=== PATIENT | male | born 1935 | race Caucasian/White ===

== ENCOUNTER → 2016-11-10 | Outpatient (CLI) | payer OTHER ==
[~2016-11-10] MED LIST: ASPEC81 PO; HYT/2 PO; LISI-789 PO; METO25TA3 PO; MISCCAP80 PO; MULT-506 PO; SIMV40TA4 PO
[2016-11-10 11:20] LABS: ESTIMATED AVERAGE GLUCOSE 114 mg/dl; HA1C FLAG Normal (Normal)
[2016-11-10 11:25] LABS: ALT/SGPT 33 U/L (12-78); AST/SGOT 21 U/L (15-37); BLOOD UREA NITROGEN 15 mg/dl (7-18); BUN/CREATININE RATIO 12.7 (10-20); CALCIUM 8.9 mg/dl (8.5-10.1); CARBON DIOXIDE 27 mmol/L (21-32); CHLORIDE 106 mmol/L (98-107); GLUCOSE 125 mg/dl (70-99); HDL CHOLESTEROL 53 mg/dl; POTASSIUM 4.4 mmol/L (3.5-5.1); SODIUM 141 mmol/L (136-145)
[2016-11-10 11:27] LABS: ALKALINE PHOSPHATASE 46 U/L (45-117); CHOLESTEROL 114 mg/dl (0-200); CHOLESTEROL/HDL RATIO 2.2; LDL CHOLESTEROL CALCULATED 35 mg/dl; TRIGLYCERIDES 129 mg/dl (0-150); VERY LOW DENSITY LIPOPROT CALC 26 mg/dl
[2016-11-10 11:49] LABS: HEMATOCRIT 43.8 % (42-52); MEAN CELL VOLUME 91.1 fL (80-100); MEAN CORPUSCULAR HEMOGLOBIN 32.2 pg (25-34); MEAN CORPUSCULAR HGB CONC 35.4 g/dl (32-36); MEAN PLATELET VOLUME 12.3 fL (7.4-10.4); PLATELET COUNT 87 K/uL (130-400); RED BLOOD COUNT 4.81 M/uL (4.7-6.1); WHITE BLOOD COUNT 4.84 K/uL (4.8-10.8)
[2016-11-10 11:53] LABS: BASO % 0.2 %; BASO ABS # 0.01 K/uL (0-0.2); COMPLETE YES; EOS % 2.1 %; IG% 0.4 %; LYMPH ABS # 0.63 K/uL (1.2-3.4); MONO % 7.2 %; NEUT % 77.1 %; PLT ESTIMATE DECREASED
--- NOTE | 2016-11-14 10:13 | CODING QUERY MEDICAL NECESSITY ---
SUPPORTING DIAGNOSIS NEEDED Dr. Wilson, A supporting diagnosis is required for the test/procedure performed on this patient in order for us to be reimbursed by the patient's insurance. Please provide a supporting diagnosis for the following test/procedure listed below next to the test name along with your signature. *If there is no additional diagnosis for this patient that would support the following test/procedure please document that below next to the test/procedure. Test(s)/Procedure(s) that require a supporting diagnosis: * ([id number]) VITAMIN D ASSAY DIAGNOSIS: DATE OF SERVICE: 11/10/16 Provider Signature: Date: Thank you [facility] Information Management Once completed, please kindly fax back to [phone] For questions please call [phone]
== END | disposition home or self-care (01) ==
LOC: C.LABBC 08:35
PROVIDERS: ATTEND Internal Medicine Geriatric Medicine
DX: I25.10 Atherosclerotic heart disease of native coronary artery without angina pectoris (principal); I10 Essential (primary) hypertension; R73.9 Hyperglycemia, unspecified; C85.90 Non-Hodgkin lymphoma, unspecified, unspecified site; L40.9 Psoriasis, unspecified

== ENCOUNTER → 2017-02-06 | Outpatient (CLI) | payer OTHER ==
[2017-02-06 14:19] VITALS: BP 150/82; PULSE 64; TEMP 36.7; O2SAT 95
--- NOTE | 2017-02-06 16:30 | Radiation Oncology Follow-Up ---
Radiation Oncology Follow-Up Date of Visit Feb 06, 2017. (Sandra Muñiz PA-C) Reason For Visit Annual follow-up (Sandra Muñiz PA-C) Radiation Completion Date 07/06/15 (Sandra Muñiz PA-C) Diagnosis (1) Liposarcoma Status: Resolved Onset Date: 04/23/2015 Location: left axilla Stage: lll Permanent Comment: Left axilla, dedifferentiated liposarcoma, grade 3, [id number] , stage III (close lateral margin - 5 mm) Left axillary mass 01/22/2015 CT 02/02/2015 FNA showed rare malignant cells 03/23/2015 wide local excision with lymph node dissection Status post completion of radiation therapy 07/06/2015 received 6000 cGy Last Edited By: Sandra Muñiz on Jul 13, 2015 11:33 (Sandra Muñiz PA-C) History of Present Illness Mr. Strickland is a 79 year old male who recently presented with a palpable left axillary mass. It was initially detected by Dr. Wilson after the patient was complaining of night sweats. He did have a CT Thorax/Abdo/Pelvis which was completed on 01/22/2015 and revealed a left axillary michell mass measuring 5.7 cm in greatest dimension. There was no other evidence of disease. The patient subsequently had a FNA biopsy completed on 02/02/2015 which which only revealed rare malignant cells. The patient was then referred to Dr. Abundio Farooq who did perform an excisional biopsy of the mass which revealed poorly differentiated malignant neoplasm. This pathology specimen was reevaluated at [facility] and they did diagnose it as a dedifferentiated liposarcoma. Subsequently the patient was referred to Dr. Melanie Richardson at [facility] and she recommended a wide local excision and axillary lymph node dissection. The patient underwent wide local excision and actually lymph node dissection on 03/23/2015 which revealed a 9.5 cm dedifferentiated liposarcoma, grade 3. The margins were negative however the closest margin was 5 mm and was at the lateral aspect. 2 out of the 8 axillary lymph nodes were positive for metastatic liposarcoma. The patient was staged as pT2bN1, AJCC stage III. The patient's case was discussed and the recommendation was made for adjuvant radiation therapy and consideration of chemotherapy. Dr. Dawson has seen the patient in consultation and recommended consideration of adjuvant radiation therapy. Restaging scans were completed on 04/22/2015 and showed no evidence of progression of disease or metastatic disease. The patient continues to follow with Dr. Farooq and is being followed as he does continue to have drainage from a J-drain. We are now seeing the patient in consultation. He completed radiation therapy 07/06/2015. He received 6000 cGy (Sandra Muñiz PA-C) Interim History He's been doing well over this past year. He has noted no changes of the axilla. There been no masses. He has a history of lymphedema. He states that the swelling of the arm is doing very well. He wears his sleeve on a nearly daily basis. He is not been seen at the lymphedema clinic over this past year. This has not been required. He is seen on a regular basis at [facility] by . He has a CT of the chest at each visit. There is been no recurrence. There has been no findings of metastatic disease in the chest. (Sandra Muñiz PA-C) Allergies Coded Allergies: No Known Allergies (Unverified , 01/10/16) Home Medications Scheduled Aspirin Enteric Coated (Ecotrin Or Generic *), 81 MG PO QAM Lisinopril (Zestril), 2.5 MG PO QAM Metoprolol Succ (Toprol Xl) (Toprol-Xl), 25 MG PO QAM Multivitamin (Multivitamin), 1 TAB PO QAM Probiotic Product (Probiotic), 1 CAP PO QAM Simvastatin (Zocor), 40 MG PO QPM Terazosin Hcl (Hytrin), 2 TAB PO BID Review of Systems Gastrointestinal: Symptoms: Constipation GI Comments: Chronic constipation - manageable with miralax; Oral: Symptoms: No Problems Respiratory: Symptoms: WNL Urinary: Symptoms: WNL Comments: Takes medication for enlarged prostate - no changes in habits Skin: Symptoms: No Problems Breast: Right Upper Arm Measurement: 32.3 Right Mid Arm Measurement: 29.0 Right Wrist Measurement: 18.5 Left Upper Arm Measurement: 32.8 Left Mid Arm Measurement: 31.5 Left Wrist Measurement: 18.8 Arm Dominence: Right (Sandra Muñiz PA-C) Physical Exam Vital Signs Date Time Temp Pulse Resp B/P (MAP) Pulse Ox O2 Delivery O2 Flow Rate FiO2 02/06/17 14:19 36.7 64 20 150/82 95 General Appearance: no apparent distress Eyes: normal inspection, EOMI ENT: normal ENT inspection Neck: no adenopathy, thyroid normal Respiratory/Chest: lungs clear, no respiratory distress, no accessory muscle use Cardiovascular: regular rate, rhythm, no gallop, no murmur Abdomen: non tender, soft Extremities: + pertinent finding (compression sleeve and placed on the left arm. There are postoperative and post radiation changes seen in the axilla. There is mild telangiectasia. There is residual hyperpigmentation. There are no palpable masses.) Neurologic/Psychiatric: no motor/sensory deficits, alert, normal mood/affect Skin: + pertinent finding (generalized eczema) (Sandra Muñiz PA-C) Laboratory Studies Test 11/10/16 08:39 White Blood Count 4.84 K/uL (4.8-10.8) Red Blood Count 4.81 M/uL (4.7-6.1) Hemoglobin 15.5 g/dL (14.0-18.0) Hematocrit 43.8 % (42-52) Mean Corpuscular Volume 91.1 fL (80-100) Mean Corpuscular Hemoglobin 32.2 pg (25-34) Mean Corpuscular Hemoglobin Concent 35.4 g/dl (32-36) Platelet Count 87 K/uL (130-400) Mean Platelet Volume 12.3 fL (7.4-10.4) Neutrophils (%) (Auto) 77.1 % Lymphocytes (%) (Auto) 13.0 % Monocytes (%) (Auto) 7.2 % Eosinophils (%) (Auto) 2.1 % Basophils (%) (Auto) 0.2 % Neutrophils # (Auto) 3.73 K/uL (1.4-6.5) Lymphocytes # (Auto) 0.63 K/uL (1.2-3.4) Monocytes # (Auto) 0.35 K/uL (0.11-0.59) Eosinophils # (Auto) 0.10 K/uL (0-0.5) Basophils # (Auto) 0.01 K/uL (0-0.2) RDW Standard Deviation 48.6 fL (36.4-46.3) RDW Coefficient of Variation 14.5 % (11.5-14.5) Immature Granulocyte % (Auto) 0.4 % Immature Granulocyte # (Auto) 0.02 K/uL (0.00-0.02) Platelet Estimate DECREASED Sodium Level 141 mmol/L (136-145) Potassium Level 4.4 mmol/L (3.5-5.1) Chloride Level 106 mmol/L (98-107) Carbon Dioxide Level 27 mmol/L (21-32) Anion Gap 8.0 mmol/L (3-11) Blood Urea Nitrogen 15 mg/dl (7-18) Creatinine 1.20 mg/dl (0.60-1.40) Estimated GFR () 64.9 Estimated GFR (Non- 56.0 BUN/Creatinine Ratio 12.7 (10-20) Random Glucose 125 mg/dl (70-99) Estimated Average Glucose 114 mg/dl Hemoglobin A1c 5.6 % (4.5-5.6) Calcium Level 8.9 mg/dl (8.5-10.1) Total Bilirubin 0.9 mg/dl (0.2-1) Aspartate Amino Transferase (AST) 21 U/L (15-37) Alanine Aminotransferase (ALT) 33 U/L (12-78) Alkaline Phosphatase 46 U/L (45-117) Total Protein 6.9 gm/dl (6.4-8.2) Albumin 3.5 gm/dl (3.4-5.0) Globulin 3.4 gm/dl (2.5-4.0) Albumin/Globulin Ratio 1.0 (0.9-2) Triglycerides Level 129 mg/dl (0-150) Cholesterol Level 114 mg/dl (0-200) HDL Cholesterol 53 mg/dl LDL Cholesterol, Calculated 35 mg/dl VLDL Cholesterol, Calculated 26 mg/dl Cholesterol/HDL Ratio 2.2 25-Hydroxy Vitamin D Total 32.7 ng/ml (30-100) (Sandra Muñiz PA-C) Additional Studies He had a CT of the chest 08/22/2016. This showed no evidence of metastatic disease. Evolving postoperative and post radiation changes in the left axilla, improved. 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 (Sandra Muñiz PA-C) Assessment & Plan Plan: Patient is also seen and examined by Dr. Torres. Continue follow-up with his primary care physician and at [facility]. He'll be seeing her having a recheck CT of the chest in February. We asked him to return to our office in 1 year. He may call if he has new questions or concerns in the interim. (Sandra Muñiz PA-C) I agree with note created by Sandra Muñiz PA-C. I reviewed the patient's chart and information with her. I have examined and evaluated the patient. I reviewed relevant clinical information and answered the patient's and/or family' s questions. (Veeral. Torres MD) Total Time In Follow-Up I spent 20 minutes the need to the patient performing examination. I spent 15 minutes reviewing information and completing this note. (Sandra Muñiz PA-C) I spent 15 minutes examining and counseling the patient. (Veeral. Torres MD) Copy To Berto Wilson M.D.; Melanie Richardson M.D.
== END | disposition home or self-care (01) ==
LOC: C.ONC 14:10
PROVIDERS: ATTEND Physician Assistant Medical
DX: Z08 Encounter for follow-up examination after completed treatment for malignant neoplasm (principal); Z92.3 Personal history of irradiation; Z85.89 Personal history of malignant neoplasm of other organs and systems

== ENCOUNTER → 2017-12-20 | Outpatient (CLI) | payer OTHER ==
--- NOTE | 2017-12-20 11:36 | DIAGNOSTIC IMAGING REPORT ---
LUMBAR SPINE 5 VIEWS CLINICAL HISTORY: Chronic low back pain. FINDINGS: 5 views of the lumbar spine are correlated with abdominal CT dated 04/22/2015. The skeletal structures are osteopenic. There is no radiographic evidence of fracture or malalignment. There is straightening of the lumbar lordosis. Vertebral body height and alignment are maintained. The transverse and spinous processes appear intact. Anterior osteophytes are seen throughout. There is no evidence of spondylolysis. Facet arthropathy is seen in the lower lumbar region. There is moderate disc space narrowing at L5-S1. Mild disc space narrowing is seen at the remaining lumbar levels. The visualized bony pelvis appears intact. Mild sclerotic change is noted in the sacroiliac joints. No bowel obstruction is identified. There is mild to moderate colonic fecal retention. Advanced atherosclerotic calcification is noted in the abdominal aorta. IMPRESSION: 1. No acute bony abnormality is seen involving the lumbar spine. 2. Osteopenia and spondylotic change as detailed above. Dictated: 12/20/2017 10:29 AM Transcribed: 12/20/2017 11:36 AM SURENDRA_[email or web address] Electronically signed by: Saeed Graff M.D. 12/20/2017 11:50 AM Dictated Date/Time: 12/20/2017 10:29 AM
== END | disposition home or self-care (01) ==
LOC: C.RADBC 10:12
PROVIDERS: ATTEND Internal Medicine Geriatric Medicine
DX: M54.5 Low back pain (principal)

== ENCOUNTER 2022-05-02 10:37 | Observation (INO) ==
--- NOTE | 2022-05-02 11:45 | Emergency Department Note ---
Impression & Plan Dehydration, Lymphedema of arm, Elevated LFTs, Weakness, Drop in hemoglobin ED Provider Note NAME: MONTY GARCIA AGE: 86 SEX: M : 1935 ARRIVES VIA: Walk-In INFORMANT: Patient, ED PROVIDER(S): Trey Lee MD Chief Complaint: Weakness, fatigue, dehydration, arm swelling HPI: Patient presents with the above symptoms. The patient did have an upper respiratory illness several weeks ago and since then he has not quite recovered in terms of strength. The patient states that his appetite has been poor may not be drinking as much and has been trying to continue with Ensure. Patient was seen by Marlys Leon in the outpatient setting at [facility] was referred here for further evaluation and treatment. There was also concern that the patient may be dehydrated. Patient has complained of some mild shortness of breath but denies any orthopnea. He has more fatigable. Patient denies any chest pains. He has noted some increase in left upper extremity swelling. The patient does live by himself. Family at bedside does live nearby. Patient has not had any nausea vomiting or diarrhea. Patient denies any dark stools or bloody stools. Patient denies any chest pains. Patient denies any abdominal pains. ROS: See HPI for pertinent positives and negatives. A total of 10 systems were reviewed and otherwise negative. Past medical history: See below Surgical history: See below Social history: See below Physical Exam: GENERAL: NAD, wearing a mask, non-toxic. Hard of hearing. EYE EXAM: Normal conjunctiva. PERRL, no anisocoria and EOM's grossly intact w/o pain. NECK: Supple, no nuchal rigidity, no adenopathy, non-tender. No signs of meningismus. FROM of the neck with good chin to chest and neck extension. No stridor. LUNGS: Clear to auscultation. Normal chest wall mechanics. HEART: NSR, no MRG. ABDOMEN: Abdomen soft, non-tender, normo-active bowel sounds, no masses, no rebound or guarding. BACK: No CVA TTP. SKIN: No rashes and no bruising. UPPER EXTREMITIES: Left greater than right extremity swelling, faint blanching redness but without crepitus warmth or TTP. Neurovascular intact distally with good radial pulse. LOWER EXTREMITIES: Grossly normal, 1+ symmetric pretibial edema without any surrounding erythema or crepitus and no pain. Neurovascular intact distally. NEURO EXAM: A&O x3, cranial nerves II-XII grossly intact, normal speech, moves all 4 extremities. Differential diagnoses: Infection, dehydration, metabolic abnormality, hypo/hyperglycemia, electrolyte disturbance, anemia, hypoxia, cardiac sources, intracerebral event, toxicologic, neurologic, as well as other pathologies. Course: Patient was seen and evaluated the bedside. Full history physical exam was performed. EKG interpreted by me Sinus with first-degree AV block, PVCs noted. Rate is 68, wide QRS, left oral branch block pattern. PVCs and left bundle are new from comparison February 09, 2015. No obvious sgarbossa criteria Imaging Studies: See Below Cardiac monitoring: An order was placed for continuous cardiac monitoring. The monitor shows a rate of 72 with regular rhythm. MDM: Patient presents as an outpatient referral due to concern for weakness shortness of breath and left upper extremity swelling. Blood work was obtained along with an EKG chest x-ray and left upper extremity ultrasound. The patient's chest film shows cardiomegaly but without pulmonary edema. The patient does have some atelectatic changes. The patient's blood work shows a normal white count but with a hemoglobin of 11. Patient's most recent hemoglobin several months ago was 15. Patient had denied any dark stool or bright red blood per rectum. Patient's kidney function is unremarkable. Mild hypocalcemia was noted. The patient did receive calcium replacement and the patient was mildly hyponatremic at 131 but did receive IV fluids. The patient's bilirubin AST ALT and alk phos are elevated. Patient's bilirubin is chronically elevated. AST is borderline elevated at 47 and the patient's ALT is at 57. Alk phos of 143. Patient did have a gallbladder liver ultrasound that was added to his left upper extremity ultrasound. COVID-negative. Patient's left upper extremity ultrasound is negative. I did perform a rectal exam which was heme-negative. Patient's right upper quadrant ultrasound does show possibly a calculus cholecystitis. I did speak with the on-call general surgery team Mirta Cortez PA-C. She recommended admission and HIDA scan. I did speak with the on-call hospitalist Dr. Vo and the patient was admitted to the medicine service. 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 History of coronary artery bypass graft x 1 Family History Father Cancer Aunt Cancer Brother Coronary heart disease Myocardial infarction Denies family history of Ovarian cancer Prostate cancer Breast cancer Lung cancer Colorectal cancer Social History Smoking Status: Former smoker Age Started Using Tobacco: 15; Age Quit Using Tobacco: 45; Second Hand Exposure: No; Hx Alcohol Use: No Hx Substance Use: No Preferred Language: Persian Hearing Ability: Use of Hearing Aid marital status: Current Living Situation: Alone current occupational status: retired Feels Safe at Home: Yes caffeine: Yes Dental Care, Regularly: Yes Physical Activity Frequency: 3-4 Times per Week Seatbelt Use: always Sunscreen Use: No Assistive Devices: Denture - Upper, Glasses, Hearing Aid - Bilateral and Hearing Aid - Left Allergies Allergies Allergy/AdvReac Type Severity Reaction Status Date / Time No Known Allergies Allergy Verified 05/02/22 17:47 Home Meds Home Medications Medication Instructions Recorded Confirmed amoxicillin 500 mg capsule 2,000 mg PO ONCE PRN DENTAL 04/22/19 05/02/22 APPOINTMENT #4 caps multivitamin (Daily Multi-Vitamin 1 tab PO DAILY 04/22/19 05/02/22 tablet) terazosin 2 mg capsule 4 mg PO HS #360 caps 04/22/19 05/02/22 lactobacillus combination no.8 See Rx Instructions PO DAILY 05/15/19 05/02/22 [Adult Probiotic] atorvastatin 20 mg tablet 40 mg PO DAILY 08/01/21 05/02/22 Previous Rx's Medication Instructions Recorded lisinopril 2.5 mg tablet 2.5 mg PO DAILY #90 tabs 04/12/22 metoprolol succinate 25 mg 25 mg PO DAILY #90 tabs 04/12/22 tablet,extended release 24 hr Results & Data (ED) Vital Signs Vital Signs - 24 hr 05/02/22 11:06 05/02/22 14:00 05/02/22 15:44 Temperature 36.3 C L Temperature Source Temporal Artery Scan Pulse Rate 79 Pulse Rate [Right Finger] 68 73 Pulse Rhythm Regular Pulse Rhythm [Right Finger] Regular Regular Pulse Strength Normal Pulse Strength [Right Finger] Respiratory Rate 18 18 20 Respiratory Effort / Characteristics Non-Labored Spontaneous Respiratory Depth Normal Normal Normal Respiratory Pattern Regular Blood Pressure 103/66 Blood Pressure [Right Arm] 131/84 115/61 Blood Pressure Mean 78 Blood Pressure Mean [Right Arm] 99 79 Blood Pressure Position Sitting Blood Pressure Position [Right Arm] Pulse Oximetry 96 99 97 Oxygen Delivery Method Room Air Room Air Room Air Sepsis Recent Fever Within 48 Hours No Sepsis New/Unexplained Change in Mental Status No Sepsis Action Taken by Nursing No Action Required 05/02/22 17:00 Temperature Temperature Source Pulse Rate Pulse Rate [Right Finger] 71 Pulse Rhythm Pulse Rhythm [Right Finger] Regular Pulse Strength Pulse Strength [Right Finger] Normal Respiratory Rate 20 Respiratory Effort / Characteristics Non-Labored Spontaneous Respiratory Depth Normal Respiratory Pattern Regular Blood Pressure Blood Pressure [Right Arm] 122/69 Blood Pressure Mean Blood Pressure Mean [Right Arm] 86 Blood Pressure Position Blood Pressure Position [Right Arm] Sitting Pulse Oximetry 94 Oxygen Delivery Method Room Air Sepsis Recent Fever Within 48 Hours Sepsis New/Unexplained Change in Mental Status Sepsis Action Taken by [facility] Medications Current Medication List: was personally reviewed by me Laboratory Data Attestation: I reviewed the patient's lab results. Result diagrams: 05/02/22 12:45 05/02/22 12:45 Lab Results 05/02/22 05/02/22 05/02/22 Range/Units 12:45 12:45 12:45 WBC 7.54 (4.8-10.8) K/ul RBC 3.49 L (4.63-6.08) M/uL Hgb 11.0 L (14.0-18.0) g/dl Hct 32.7 L (40.1-51.0) % MCV 93.7 (80.0-100.0) fL MCH 31.5 (25.0-34.0) pg MCHC 33.6 (32.0-36.0) g/dL RDW Std Deviation 51.9 H (36.4-46.3) fL RDW Coeff of Laith 15.3 H (11.5-14.5) % Plt Count 149 (130-400) K/uL MPV 10.8 (9.4-12.4) fL Immature Gran % (Auto) 0.8 % Neut % (Auto) 89.9 % Lymph % (Auto) 4.9 % Tompkins % (Auto) 3.6 % Eos % (Auto) 0.4 % Baso % (Auto) 0.4 % Neut # (Auto) 6.78 H (1.4-6.5) K/uL Lymph # (Auto) 0.37 L (1.2-3.4) K/uL Tompkins # (Auto) 0.27 (0.24-0.82) K/uL Eos # (Auto) 0.03 (0-0.50) K/uL Baso # (Auto) 0.03 (0-0.2) K/uL Immature Gran # (Auto) 0.06 H (0.00-0.02) K/uL Polychromasia 1+ Echinocytes 2+ Acanthocytes (Spur) 2+ PT 12.5 H (9.0-12.0) Seconds INR 1.2 H (0.9-1.1) Sodium 131 L (136-145) mmol/L Potassium 4.6 (3.5-5.1) mmol/L Chloride 100 (98-107) mmol/L Carbon Dioxide 26 (21-32) mmol/L Anion Gap 5 (3-11) BUN 18 (6-23) mg/dl Creatinine 0.84 (0.6-1.4) mg/dl Est Cr Clr Drug Dosing 75.2 ml/min Est GFR ( Amer) 91.2 ml/min Est GFR (Non-Af Amer) 78.7 ml/min BUN/Creatinine Ratio 21.4 H (10-20) Glucose 109 H (70-99(Fasting)) mg/dl Calcium 8.2 L (8.5-10.1) mg/dl Magnesium 1.9 (1.7-2.4) mg/dl Total Bilirubin 1.3 H (0.2-1.0) mg/dl AST 47 H (13-39) U/L ALT 57 H (7-52) U/L Alkaline Phosphatase 143 H (34-104) U/L Troponin I High Sens 5.9 (0-20) pg/ml Total Protein 6.1 (6.0-8.3) gm/dl Albumin 2.7 L (3.4-5.0) gm/dl Globulin 3.4 (2.5-4.0) gm/dl Albumin/Globulin Ratio 0.8 L (0.9-2) TSH (0.300-4.500) uIu/ml SARS-CoV-2, RNA, NAAT (NEGATIVE) 05/02/22 05/02/22 Range/Units 12:45 14:26 WBC (4.8-10.8) K/ul RBC (4.63-6.08) M/uL Hgb (14.0-18.0) g/dl Hct (40.1-51.0) % MCV (80.0-100.0) fL MCH (25.0-34.0) pg MCHC (32.0-36.0) g/dL RDW Std Deviation (36.4-46.3) fL RDW Coeff of Laith (11.5-14.5) % Plt Count (130-400) K/uL MPV (9.4-12.4) fL Immature Gran % (Auto) % Neut % (Auto) % Lymph % (Auto) % Tompkins % (Auto) % Eos % (Auto) % Baso % (Auto) % Neut # (Auto) (1.4-6.5) K/uL Lymph # (Auto) (1.2-3.4) K/uL Tompkins # (Auto) (0.24-0.82) K/uL Eos # (Auto) (0-0.50) K/uL Baso # (Auto) (0-0.2) K/uL Immature Gran # (Auto) (0.00-0.02) K/uL Polychromasia Echinocytes Acanthocytes (Spur) PT (9.0-12.0) Seconds INR (0.9-1.1) Sodium (136-145) mmol/L Potassium (3.5-5.1) mmol/L Chloride (98-107) mmol/L Carbon Dioxide (21-32) mmol/L Anion Gap (3-11) BUN (6-23) mg/dl Creatinine (0.6-1.4) mg/dl Est Cr Clr Drug Dosing ml/min Est GFR ( Amer) ml/min Est GFR (Non-Af Amer) ml/min BUN/Creatinine Ratio (10-20) Glucose (70-99(Fasting)) mg/dl Calcium (8.5-10.1) mg/dl Magnesium (1.7-2.4) mg/dl Total Bilirubin (0.2-1.0) mg/dl AST (13-39) U/L ALT (7-52) U/L Alkaline Phosphatase (34-104) U/L Troponin I High Sens (0-20) pg/ml Total Protein (6.0-8.3) gm/dl Albumin (3.4-5.0) gm/dl Globulin (2.5-4.0) gm/dl Albumin/Globulin Ratio (0.9-2) TSH 4.226 (0.300-4.500) uIu/ml SARS-CoV-2, RNA, NAAT NEGATIVE (NEGATIVE) Administered Medications Discontinued Medications Sodium Chloride (Nss 1000ml) 1,000 mls @ 999 mls/hr IV .Q1H1M ASHLY Stop: 05/02/22 13:30 Last Admin: 05/02/22 14:12 Dose: 999 mls/hr Documented By: AMANDA Calcium Gluconate () 1,000 mg in 60 mls @ 240 mls/hr IV NOW STA Stop: 05/02/22 15:11 Last Infusion: 05/02/22 16:29 Dose: 240 mls/hr Documented By: Admin: 05/02/22 16:05 Dose: 240 mls/hr Documented By: AMANDA Imaging Data Radiologist's Impression: Extremity Venous Study 05/02/22 12:16 ULTRASOUND LEFT UPPER EXTREMITY VENOUS CLINICAL HISTORY: Lymphedema. COMPARISON STUDY: No priors. TECHNIQUE: Real-time, grayscale, and color Doppler sonography of the deep veins of the left upper extremity is performed. Compression and augmentation were utilized. FINDINGS: There is no sonographic evidence of deep venous thrombosis identified in the left upper extremity. The left internal jugular, axillary, and brachial veins are patent and normally compressible. Normal venous waveforms and augmentation are seen within the left subclavian vein. The cephalic and basilic veins are clear. The visualized radial and ulnar veins are patent. IMPRESSION: There is no sonographic evidence of deep venous thrombosis identi fied in the left upper extremity. ACT 112: Negative or not required by law. Electronically signed by: Saeed Graff M.D. 05/02/2022 3:40 PM Chest X-Ray 05/02/22 12:17 XR chest 1V portable HISTORY: 86 years-old Male weakness acute weakness COMPARISON: Chest CT 02/26/2020 TECHNIQUE: Portable AP view of the chest FINDINGS: Cardiac silhouette is enlarged. Prior median sternotomy. Atherosclerosis of the aorta. No pneumothorax or overt pulmonary edema. Mild subsegmental bibasilar densities. Degenerative changes of the shoulders and spine. Surgical clips of the left axilla. IMPRESSION: 1. Cardiomegaly without pulmonary edema. 2. Mild bibasilar opacities suggest atelectasis. ACT 112: Negative or not required by law. The above report was generated using voice recognition software. It may contain grammatical, syntax or spelling errors. Electronically signed by: Garrison Russo M.D. 05/02/2022 1:15 PM Gallbladder Ultrasound 05/02/22 14:10 ULTRASOUND RIGHT UPPER QUADRANT ABDOMEN CLINICAL HISTORY: Elevated hepatic transaminases. COMPARISON STUDY: Abdominal CT dated 04/22/2015. Abdominal ultrasound dated 10/11/2020. TECHNIQUE: Real-time, grayscale, and color flow sonography of the right upper quadrant of the abdomen was performed. Images are reviewed in the transverse and longitudinal planes. FINDINGS: Liver: The liver is normal in size. Hepatic echotexture there is increased getting steatosis. There is no intrahepatic biliary ductal dilatation. The main portal vein is patent. Gallbladder: The gallbladder is distended and the gallbladder wall is mildly thickened measuring 3 to 4 mm. No shadowing gallstones are identified. There is trace nonspecific pericholecystic fluid. A 4 mm gallbladder polyp is incid entally noted. A sonographic Valentin's sign is reportedly absent. The common bile duct measures up to 0.6 cm in diameter. Pancreas: Visualized portions of the pancreatic head and body are normal in appearance. Right kidney: Survey images of the right kidney demonstrate cortical atrophy. Echotexture is normal. There is no hydronephrosis. Ascites: None. IMPRESSION: 1. Hepatic steatosis. 2. No shadowing gallstones are identified. 3. The gallbladder is distended and mildly thick walled. There is trace p ericholecystic fluid and a sonographic Valentin's sign is reportedly absent. Findings are equivocal for acalculous cholecystitis which is not excluded. Clinical and laboratory correlation will be essential. If there is concern for cholecystitis a nuclear hepatobiliary scan could be considered for further assessment. 4. A 4 mm gallbladder polyp is incidentally noted. ACT 112: Negative or not required by law. Electronically signed by: Saeed Graff M.D. 05/02/2022 3:46 PM Discharge Plan Visit Data Chief Complaint: Dehydration Stated Complaint: DEHYDRATION, WEAKNESS ED Provider: Trey Lee Discharge Problem: Dehydration, Lymphedema of arm, Elevated LFTs, Weakness, Drop in hemoglobin Patient Disposition: Admitted As Inpatient Forms Stand Alone Forms: [facility] Prescriptions Prescriptions: No Action metoprolol succinate 25 mg tablet extended release 24 hr 25 mg PO DAILY Qty: 90 3RF lisinopril 2.5 mg tablet 2.5 mg PO DAILY Qty: 90 3RF amoxicillin 500 mg capsule 2,000 mg PO ONCE PRN (Reason: DENTAL APPOINTMENT) Qty: 4 multivitamin [Daily Multi-Vitamin] tablet 1 tab PO DAILY terazosin 2 mg capsule 4 mg PO HS Qty: 360 Rx Instructions: THIS DOSE WAS STATED BY PATIENT. lactobacillus combination no.8 See Rx Instructions PO DAILY Label Comments: 1 tablet PO DAILY; Rx Instructions: 1 tablet PO DAILY; atorvastatin 20 mg tablet 40 mg PO DAILY Referrals Referrals: Emilia Herrera MD [Primary Care Provider] -
[2022-05-02] MEDS ORDERED: SODIUM CHLORIDE 0.9% 1000ML 1,000 ML IV SCH (12:30)
[2022-05-02 13:09] LABS: Hematocrit (blood only) 32.7 % (40.1-51.0); Mean Corpuscular Hemoglobin 31.5 pg (25.0-34.0); Mean Corpuscular Hgb Conc 33.6 g/dL (32.0-36.0); Mean Corpuscular Volume 93.7 fL (80.0-100.0); Mean Platelet Volume 10.8 fL (9.4-12.4); Platelet Count 149 K/uL (130-400); RDW Coefficient of Variation 15.3 % (11.5-14.5); RDW Standard Deviation 51.9 fL (36.4-46.3); Red Blood Count 3.49 M/uL (4.63-6.08); White Blood Count 7.54 K/ul (4.8-10.8)
[2022-05-02 13:12] LABS: INR 1.2 (0.9-1.1); Prothrombin Time 12.5 Seconds (9.0-12.0)
--- NOTE | 2022-05-02 13:17 | XRay Report ---
XR chest 1V portable HISTORY: 86 years-old Male weakness acute weakness COMPARISON: Chest CT 02/26/2020 TECHNIQUE: Portable AP view of the chest FINDINGS: Cardiac silhouette is enlarged. Prior median sternotomy. Atherosclerosis of the aorta. No pneumothora x or overt pulmonary edema. Mild subsegmental bibasilar densities. Degenerative changes of the should ers and spine. Surgical clips of the left axilla. IMPRESSION: 1. Cardiomegaly without pulmonary edema. 2. Mild bibasilar opacities suggest atelectasis. ACT 112: Negative or not required by law. The above report was generated using voice recognition software. It may contain grammatical, syntax o r spelling errors. Electronically signed by: Garrison Russo M.D. 05/02/2022 1:15 PM
[2022-05-02 13:26] LABS: Acanthocytes 2+; Basophils # (auto) 0.03 K/uL (0-0.2); Basophils % (auto) 0.4 %; Echinocytes 2+; Eosinophils # (auto) 0.03 K/uL (0-0.50); Eosinophils % (auto) 0.4 %; Immature Granulocytes # (auto) 0.06 K/uL (0.00-0.02); Immature Granulocytes % (auto) 0.8 %; Lymphocytes # (auto) 0.37 K/uL (1.2-3.4); Lymphocytes % (auto) 4.9 %; Monocytes # (auto) 0.27 K/uL (0.24-0.82); Monocytes % (auto) 3.6 %; Neutrophils # (auto) 6.78 K/uL (1.4-6.5); Neutrophils % (auto) 89.9 %; Polychromasia 1+
[2022-05-02 13:40] LABS: Albumin Globulin Ratio 0.8 (0.9-2); Albumin Level 2.7 gm/dl (3.4-5.0); BUN Creatinine Ratio 21.4 (10-20); Bilirubin,Total 1.3 mg/dl (0.2-1.0); Calcium 8.2 mg/dl (8.5-10.1); Creatinine Clr Calc Pharmacy 75.2 ml/min; Est GFR (African American) 91.2 ml/min; Est GFR (Non-African American) 78.7 ml/min; Globulin 3.4 gm/dl (2.5-4.0); Magnesium 1.9 mg/dl (1.7-2.4); Potassium 4.6 mmol/L (3.5-5.1); Total Protein 6.1 gm/dl (6.0-8.3); Troponin I High Sensitivity 5.9 pg/ml (0-20)
[2022-05-02] MEDS ORDERED: CALCIUM GLUCONATE 1,000 MG/60 ML BAG IV STA (14:57)
--- NOTE | 2022-05-02 15:42 | Ultrasound Report ---
ULTRASOUND LEFT UPPER EXTREMITY VENOUS CLINICAL HISTORY: Lymphedema. COMPARISON STUDY: No priors. TECHNIQUE: Real-time, grayscale, and color Doppler sonography of the deep veins of the left upper ext remity is performed. Compression and augmentation were utilized. FINDINGS: There is no sonographic evidence of deep venous thrombosis identified in the left upper ext remity. The left internal jugular, axillary, and brachial veins are patent and normally compressible. Normal venous waveforms and augmentation are seen within the left subclavian vein. The cephalic and basilic veins are clear. The visualized radial and ulnar veins are patent. IMPRESSION: There is no sonographic evidence of deep venous thrombosis identified in the left upper e xtremity. ACT 112: Negative or not required by law. Electronically signed by: Saeed Graff M.D. 05/02/2022 3:40 PM
--- NOTE | 2022-05-02 15:47 | Ultrasound Report ---
ULTRASOUND RIGHT UPPER QUADRANT ABDOMEN CLINICAL HISTORY: Elevated hepatic transaminases. COMPARISON STUDY: Abdominal CT dated 04/22/2015. Abdominal ultrasound dated 10/11/2020. TECHNIQUE: Real-time, grayscale, and color flow sonography of the right upper quadrant of the abdomen was performed. Images are reviewed in the transverse and longitudinal planes. FINDINGS: Liver: The liver is normal in size. Hepatic echotexture there is increased getting steatosis. There i s no intrahepatic biliary ductal dilatation. The main portal vein is patent. Gallbladder: The gallbladder is distended and the gallbladder wall is mildly thickened measuring 3 to 4 mm. No shadowing gallstones are identified. There is trace nonspecific pericholecystic fluid. A 4 mm gallbladder polyp is incidentally noted. A sonographic Valentin's sign is reportedly absent. The com mon bile duct measures up to 0.6 cm in diameter. Pancreas: Visualized portions of the pancreatic head and body are normal in appearance. Right kidney: Survey images of the right kidney demonstrate cortical atrophy. Echotexture is normal. There is no hydronephrosis. Ascites: None. IMPRESSION: 1. Hepatic steatosis. 2. No shadowing gallstones are identified. 3. The gallbladder is distended and mildly thick walled. There is trace pericholecystic fluid and a s onographic Vlaentin's sign is reportedly absent. Findings are equivocal for acalculous cholecystitis wh ich is not excluded. Clinical and laboratory correlation will be essential. If there is concern for c holecystitis a nuclear hepatobiliary scan could be considered for further assessment. 4. A 4 mm gallbladder polyp is incidentally noted. ACT 112: Negative or not required by law. Electronically signed by: Saeed Graff M.D. 05/02/2022 3:46 PM
--- NOTE | 2022-05-02 16:40 | Surgery Consultation ---
Date of Consultation May 02, 2022 Assessment & Plan (1) Elevated LFTs: This is an 86y M with a PMH of PVD, CAD, h/o aortic valve replacement 2010 who presents to the [facility] ED on 05/02/22 with generalized feeling unwell. In the ER patient noted to have slight elevation in LFT's showing, Tb: 1.3, AST: 47, ALT: 57, AlkP: 143 prompting a RUQ US to be obtained which revealed hepatic steatosis, no shadowing gallstones are identified, there is gallbladder is distended and mildly thick walled. There is trace pericholecystic fluid and a sonographic Valentin's sign is reportedly absent. Findings are equivocal for acalculous cholecystitis which is not excluded. Patient's Tbili has been elevated on previous admissions (1.1-1.3) and prior US revealed hepatic steatosis. WBC today 7.5. Hbg noted to be downtrending 11 (15). He denies noticing any blood in the stool. On exam patient's abdomen is soft, non tender and he denies any abdominal pain. There are no indications for acute surgical intervention at this time. We recommend obtaining a HIDA scan for further evaluation of his gallbladder given US findings. Patient will be admitted to medicine service for ongoing workup and management. We will follow. Supervising Physician Co-Signing Physician Notes Patient discussed with MONSE Mobley, labs and image reviewed, agree with above. 86-year-old male with weight loss, generalized illness and weakness. No abdominal tenderness on exam. Normal WBC, mildly elevated LFTs, hyponatremia. Ultrasound with distended gallbladder but no stones. Admitted to medicine service. Recommend HIDA scan to rule out acute cholecystitis. Surgery will follow. History of Present Illness History of Present Illness This is an 86y M with a PMH of PVD, CAD, h/o aortic valve replacement 2010 who presents to the [facility] ED on 05/02/22 with generalized feeling unwell. The patient's son and granddaughter are in the room who provide majority of patient's history. They said he dealt with a respiratory virus a few weeks ago and since then never really bounced back. When asked to elaborate he has had low appetite, lost 15lbs in the last 3 weeks, and generalized weakness/fatigue. At a PCP visit today he endorsed the following symptoms in addition to left arm swelling and was recommended he come into the ER for further evaluation. Patient was noted to have elevated liver enzymes prompting a RUQ US which revealed "hepatic steatosis, no shadowing gallstones are identified, there is gallbladder is distended and mildly thick walled. There is trace pericholecystic fluid and a sonographic Valentin's sign is reportedly absent. Findings are equivocal for acalculous cholecystitis which is not excluded." Patient denies any abdominal pain. He has had low appetite, but endorses no abdominal pain with eating. Has been dealing with some nausea, no vomiting. Endorses some constipation, but had a normal BM yesterday. No blood noticed in stool. Last he had to eat/drink was a boost yesterday. No prior abdominal surgical history. No history of Covid. Not on blood thinners. Patient lives by himself. Currently says he is hungry. Allergies Allergy/AdvReac Type Severity Reaction Status Date / Time No Known Allergies Allergy Verified 05/02/22 09:34 Home Medications Medication Instructions Recorded Confirmed Type amoxicillin 500 mg capsule 2,000 mg PO ONCE PRN DENTAL 04/22/19 05/02/22 History APPOINTMENT #4 caps multivitamin (Daily Multi-Vitamin 1 tab PO DAILY 04/22/19 05/02/22 History tablet) terazosin 2 mg capsule 4 mg PO BID #360 caps 04/22/19 05/02/22 History lactobacillus combination no.8 See Rx Instructions PO DAILY 05/15/19 05/02/22 History [Adult Probiotic] atorvastatin 20 mg tablet 40 mg PO DAILY 08/01/21 05/02/22 History lisinopril 2.5 mg tablet 2.5 mg PO DAILY #90 tabs 04/12/22 05/02/22 Rx metoprolol succinate 25 mg 25 mg PO DAILY #90 tabs 04/12/22 05/02/22 Rx tablet,extended release 24 hr Patient History Medical History BPH with obstruction/lower urinary tract symptoms Chronic low back pain Coronary artery disease Hypertension Impaired fasting glucose 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 Psoriasis PVD (peripheral vascular disease) Surgical History H/O aortic valve replacement with tissue graft 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 History of coronary artery bypass graft x 1 Family History Father Cancer Aunt Cancer Brother Coronary heart disease Myocardial infarction Denies family history of Ovarian cancer Prostate cancer Breast cancer Lung cancer Colorectal cancer Social History Smoking Status: Former smoker Age Started Using Tobacco: 15; Age Quit Using Tobacco: 45; Second Hand Exposure: No; Hx Alcohol Use: No Hx Substance Use: No Preferred Language: [place] Hearing Ability: Use of Hearing Aid marital status: Current Living Situation: Alone current occupational status: retired Feels Safe at Home: Yes caffeine: Yes Dental Care, Regularly: Yes Physical Activity Frequency: 3-4 Times per Week Seatbelt Use: always Sunscreen Use: No Assistive Devices: Denture - Upper, Glasses, Hearing Aid - Bilateral and Hearing Aid - Left Review of Systems Constitutional: + fatigue, + weakness and + anorexia; no fever and no chills Respiratory: no dyspnea Cardiovascular: no chest pain Gastrointestinal: + nausea and + constipation; no abdominal pain, no vomiting and no blood in stools 15lb weightloss Integumentary: L arm swelling Physical Exam Physical Exam: awake/alert, no distress Respiratory: normal respiratory effort Gastrointestinal (Abdomen): Percussion/Palpation: abdomen soft; abdomen nontender protuberant abdomen Musculoskeletal: L arm swelling Results & Data ([facility]) Vital Signs (Past 12 Hours) Vital Signs Temp Pulse Pulse Resp BP BP Pulse Ox 05/02/22 15:44 73 20 115/61 97 05/02/22 14:00 68 18 131/84 99 05/02/22 11:06 36.3 C L 79 18 103/66 96 O2 Del Method 05/02/22 15:44 Room Air 05/02/22 14:00 Room Air 05/02/22 11:06 Room Air Diagnostic Findings ULTRASOUND RIGHT UPPER QUADRANT ABDOMEN CLINICAL HISTORY: Elevated hepatic transaminases. COMPARISON STUDY: Abdominal CT dated 04/22/2015. Abdominal ultrasound dated 10/11/2020. TECHNIQUE: Real-time, grayscale, and color flow sonography of the right upper quadrant of the abdomen was performed. Images are reviewed in the transverse and longitudinal planes. FINDINGS: Liver: The liver is normal in size. Hepatic echotexture there is increased getting steatosis. There is no intrahepatic biliary ductal dilatation. The main portal vein is patent. Gallbladder: The gallbladder is distended and the gallbladder wall is mildly thickened measuring 3 to 4 mm. No shadowing gallstones are identified. There is trace nonspecific pericholecystic fluid. A 4 mm gallbladder polyp is incidentally noted. A sonographic Valentin's sign is reportedly absent. The common bile duct measures up to 0.6 cm in diameter. Pancreas: Visualized portions of the pancreatic head and body are normal in appearance. Right kidney: Survey images of the right kidney demonstrate cortical atrophy. Echotexture is normal. There is no hydronephrosis. Ascites: None. IMPRESSION: 1. Hepatic steatosis. 2. No shadowing gallstones are identified. 3. The gallbladder is distended and mildly thick walled. There is trace pericholecystic fluid and a sonographic Valentin's sign is reportedly absent. Findings are equivocal for acalculous cholecystitis which is not excluded. Cli nical and laboratory correlation will be essential. If there is concern for cholecystitis a nuclear hepatobiliary scan could be considered for further assessment. 4. A 4 mm gallbladder polyp is incidentally noted. ACT 112: Negative or not required by law. Electronically signed by: Saeed Graff M.D. 05/02/2022 3:46 PM PG Care Time/CCT Total # of Minutes Spent Total Time Spent with Patient: Total time spent is greater than 50% in coordination of care (as documented) at patient's floor/unit and/or counseling patient: Coding Level of Care Code 99323 Initial Inpt Care Lvl 1 Diagnoses Elevated LFTs R79.89
--- NOTE | 2022-05-02 17:40 | History & Physical Report ---
Date of Service May 02, 2022 Assessment & Plan (1) Elevated LFTs: Plan: -LFT's noted to be mildly elevated on initial workup by the ED -The patient is completely asymptomatic from an abdominal or biliary stance, no leukocytosis, no fever -He was evaluated by Surgery who recommended HIDA scan for continued workup but did not recommend any acute surgical intervention -Will obtain HIDA scan in the morning to help with his workup, NPO after midnight -Will hold off on antibiotics for now as the patient does not examine or have vitals/labs indicating infection at this time -Received 1L NSS in the ED, will hold off on additional IV fluids for now -Surgery will continue to follow along -AM CBC, CMP, PT/INR (2) Drop in hemoglobin: Plan: -Hgb noted to be 11.0 today, down from 15 as of January of this year -Patient denies signs of bleeding such as bloody BM's, melena, and hematuria -No other signs of active bleed at this time -Will start anemia workup to try and identify the cause (3) Lymphedema of arm: Plan: -Patient has had chronic lymphedema in the LUE since his sarcoma removal -He and family state that his chronic swelling has been worse recently -LUE doppler today negative for DVT, likely just worsening of his chronic edema, no signs of cellulitis on exam -Educated the patient and family to try jayne bandages for now until he can fit the compression sleeve back over the arm, will order the jayne bandages while he is here (4) Weakness: Plan: -Likely from deconditioning due to recent viral illness and poor oral intake -Given 1L NSS in the ED and currently eating dinner -Re-evaluate in the AM to see if weakness is improved (5) Dehydration: Plan: -See weakness Plan The patient was discussed with Dr. 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 Per the patient and family at beside, the patient had an upper respiratory infection approximately 3 weeks ago. They did multiple at home covid tests which were negative. Per his family, since the viral illness the patient has had decreased appetite and oral intake, approximately 12 pounds of weight loss, and increased LUE swelling. He normally wears a compression sleeve on the left arm but was unable to put it on since late last week. They deny recent fevers, chills, headache, changes in vision, hearing, taste, and smell, chest pain, SOB, abdominal pain, nausea, vomiting, diarrhea, constipation, dysuria, hematuria, and recent falls. When asked, the patient states that he has no abdominal pain whatsoever and has not had issues with pain or discomfort with eating. He simply has less of an appetite and has mainly been drinking boost shakes over the past 3 weeks. He was seen today at his PCP's office and they recommended him coming to the ER for a broader evaluation and workup. In the ED the patient was found to be afebrile, hemodynamically stable, and stable on room air. As part of the initial workup he was found to have a total bili of 1.3, AST of 47, ALT of 57, and alk phos of 143. Because of this, a RUQ US was ordered and showed Hepatic steatosis, No shadowing gallstones, negative sonographic Valentin's sign, and equivocal findings of possible acalculous cholecystitis. General surgery was consulted and evaluated the patient, no surgical intervention was recommended and they recommended HIDA scan for further workup. Allergies Allergy/AdvReac Type Severity Reaction Status Date / Time No Known Allergies Allergy Verified 05/02/22 17:47 Home Medications Medication Instructions Recorded Confirmed Type amoxicillin 500 mg capsule 2,000 mg PO ONCE PRN DENTAL 04/22/19 05/02/22 History APPOINTMENT #4 caps multivitamin (Daily Multi-Vitamin 1 tab PO DAILY 04/22/19 05/02/22 History tablet) terazosin 2 mg capsule 4 mg PO HS #360 caps 04/22/19 05/02/22 History lactobacillus combination no.8 See Rx Instructions PO DAILY 05/15/19 05/02/22 History [Adult Probiotic] atorvastatin 20 mg tablet 40 mg PO DAILY 08/01/21 05/02/22 History lisinopril 2.5 mg tablet 2.5 mg PO DAILY #90 tabs 04/12/22 05/02/22 Rx metoprolol succinate 25 mg 25 mg PO DAILY #90 tabs 04/12/22 05/02/22 Rx tablet,extended release 24 hr 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 History of coronary artery bypass graft x 1 Family History Father Cancer Aunt Cancer Brother Coronary heart disease Myocardial infarction Denies family history of Ovarian cancer Prostate cancer Breast cancer Lung cancer Colorectal cancer Social History Smoking Status: Former smoker Age Started Using Tobacco: 15; Age Quit Using Tobacco: 45; Second Hand Exposure: No; Hx Alcohol Use: No Hx Substance Use: No Preferred Language: Luxembourgish Hearing Ability: Use of Hearing Aid marital status: Current Living Situation: Alone current occupational status: retired Feels Safe at Home: Yes caffeine: Yes Dental Care, Regularly: Yes Physical Activity Frequency: 3-4 Times per Week Seatbelt Use: always Sunscreen Use: No Assistive Devices: Denture - Upper, Glasses, Hearing Aid - Bilateral and Hearing Aid - Left Review of Systems Review of Systems: Denies current fever, chills, headache, changes in vision, hearing, taste, and smell, chest pain, SOB, cough, abdominal pain, nausea, vomiting, diarrhea, hematemesis, melena, dysuria, hematuria, and recent falls. All systems have been reviewed and are otherwise negative. Physical Exam Physical Exam: Physical Exam: General: In no acute distress, stated age, chronically ill appearing but non- toxic appearing HEENT: Normocephalic, atraumatic, no scleral icterus, pupils around round, symmetrical, and reactive to light, moist mucus membranes, trachea midline, no thyromegaly Chest/Pulm: No respiratory distress, symmetrical chest expansion, clear breath sounds throughout Cardiac: RRR, no murmurs noted Abdomen: Negative for ascites and bruising, normoactive bowel sounds, soft, non-tender to palpation throughout Musculoskeletal: Symmetrical and without signs of acute trauma, upper and lower extremities with full ROM, no atrophy, spasticity, or flaccidity Extremities: Patient with lymphedema of the LUE, LUE is warm and pink, no signs of skin breakdown or infection, intact strength and radial pulse Skin: Warm, dry, no rashes , lesions, or scars noted Neuro: Alert and oriented to person, place, month, year, and president, no focal defects, CN II-XII tested and intact, finger to nose test negative, no tremors noted Psych: No acute distress, calm and cooperative during the exam Results & Data Results & Data ([facility]) Vital Signs (Past 12 Hours) Vital Signs Temp Pulse Pulse Resp BP BP Pulse Ox 05/02/22 17:00 71 20 122/69 94 05/02/22 15:44 73 20 115/61 97 05/02/22 14:00 68 18 131/84 99 05/02/22 11:06 36.3 C L 79 18 103/66 96 O2 Del Method 05/02/22 17:00 Room Air 05/02/22 15:44 Room Air 05/02/22 14:00 Room Air 05/02/22 11:06 Room Air Laboratory Results Abnormal lab results 05/02/22 05/02/22 05/02/22 Range/Units 12:45 12:45 12:45 RBC 3.49 L (4.63-6.08) M/uL Hgb 11.0 L (14.0-18.0) g/dl Hct 32.7 L (40.1-51.0) % RDW Std Deviation 51.9 H (36.4-46.3) fL RDW Coeff of Laith 15.3 H (11.5-14.5) % Neut # (Auto) 6.78 H (1.4-6.5) K/uL Lymph # (Auto) 0.37 L (1.2-3.4) K/uL Immature Gran # (Auto) 0.06 H (0.00-0.02) K/uL PT 12.5 H (9.0-12.0) Seconds INR 1.2 H (0.9-1.1) Sodium 131 L (136-145) mmol/L BUN/Creatinine Ratio 21.4 H (10-20) Glucose 109 H (70-99(Fasting)) mg/dl Calcium 8.2 L (8.5-10.1) mg/dl Total Bilirubin 1.3 H (0.2-1.0) mg/dl AST 47 H (13-39) U/L ALT 57 H (7-52) U/L Alkaline Phosphatase 143 H (34-104) U/L Albumin 2.7 L (3.4-5.0) gm/dl Albumin/Globulin Ratio 0.8 L (0.9-2) Diagnostic Findings Extremity Venous Study 05/02/22 12:16 ULTRASOUND LEFT UPPER EXTREMITY VENOUS CLINICAL HISTORY: Lymphedema. COMPARISON STUDY: No priors. TECHNIQUE: Real-time, grayscale, and color Doppler sonography of the deep veins of the left upper extremity is performed. Compression and augmentation were utilized. FINDINGS: There is no sonographic evidence of deep venous thrombosis identified in the left upper extremity. The left internal jugular, axillary, and brachial veins are patent and normally compressible. Normal venous waveforms and augmentation are seen within the left subclavian vein. The cephalic and basilic veins are clear. The visualized radial and ulnar veins are patent. IMPRESSION: There is no sonographic evidence of deep venous thrombosis identified in the left upper extremity. ACT 112: Negative or not required by law. Electronically signed by: Saeed Graff M.D. 05/02/2022 3:40 PM Chest X-Ray 05/02/22 12:17 XR chest 1V portable HISTORY: 86 years-old Male weakness acute weakness COMPARISON: Chest CT 02/26/2020 TECHNIQUE: Portable AP view of the chest FINDINGS: Cardiac silhouette is enlarged. Prior median sternotomy. Atherosclerosis of the aorta. No pneumothorax or overt pulmonary edema. Mild subsegmental bibasilar densities. Degenerative changes of the shoulders and spine. Surgical clips of the left axilla. IMPRESSION: 1. Cardiomegaly without pulmonary edema. 2. Mild bibasilar opacities suggest atelectasis. ACT 112: Negative or not required by law. The above report was generated using voice recognition software. It may contain grammatical, syntax or spelling errors. Electronically signed by: Garrison Russo M.D. 05/02/2022 1:15 PM Gallbladder Ultrasound 05/02/22 14:10 ULTRASOUND RIGHT UPPER QUADRANT ABDOMEN CLINICAL HISTORY: Elevated hepatic transaminases. COMPARISON STUDY: Abdominal CT dated 04/22/2015. Abdominal ultrasound dated 10/11/2020. TECHNIQUE: Real-time, grayscale, and color flow sonography of the right upper quadrant of the abdomen was performed. Images are reviewed in the transverse and longitudinal planes. FINDINGS: Liver: The liver is normal in size. Hepatic echotexture there is increased getting steatosis. There is no intrahepatic biliary ductal dilatation. The main portal vein is patent. Gallbladder: The gallbladder is distended and the gallbladder wall is mildly thickened measuring 3 to 4 mm. No shadowing gallstones are identified. There is trace nonspecific pericholecystic fluid. A 4 mm gallbladder polyp is incidentally noted. A sonographic Valentin's sign is reportedly absent. The common bile duct measures up to 0.6 cm in diameter. Pancreas: Visualized portions of the pancreatic head and body are normal in appearance. Right kidney: Survey images of the right kidney demonstrate cortical atrophy. Echotexture is normal. There is no hydronephrosis. Ascites: None. IMPRESSION: 1. Hepatic steatosis. 2. No shadowing gallstones are identified. 3. The gallbladder is distended and mildly thick walled. There is trace pericholecystic fluid and a sonographic Valentin's sign is reportedly absent. Findings are equivocal for acalculous cholecystitis which is not excluded. Clinical and laboratory correlation will be essential. If there is concern for cholecystitis a nuclear hepatobiliary scan could be considered for further assessment. 4. A 4 mm gallbladder polyp is incidentally noted. ACT 112: Negative or not required by law. Electronically signed by: Saeed Graff M.D. 05/02/2022 3:46 PM Supervising Physician Co-Signing Physician Notes I supervised Josh Webb PA-C on this admission. I interviewed and examined the patient independently of him. The plan is as written in his note except for any following changes/exceptions: None 86yo M w/ hx of sarcoma & HTN who presents with about 2 weeks of lethargy and f ailure to thrive. He had some viral URI symptoms about 2 weeks ago, and has just had a low appetite since then. No further infectious symptoms. His left arm has been more swollen lately as well, as he has had trouble getting his compression sleeve on. No pain or ulcer/sore on the arm though. He was sent in by his PCP for failure to thrive. LFTs noted to be elevated in the ER, and so RUQ u/s was ordered which showed some possible acalculous cholecystitis. Given his loss of appetite, surgery was consulted and recommended HIDA scan. Plan for obs admission, HIDA tomorrow, will determine course at that time. PG Care Time/CCT Total # of Minutes Spent Total Time Spent with Patient: Total time spent is greater than 50% in coordination of care (as documented) at patient's floor/unit and/or counseling patient: Coding Level of Care Code Established Pt INT OBSERVATION CARE 70M LVL 3 Patient Type Established Medical Decision Making Moderate Complexity Diagnoses Elevated LFTs R79.89 Drop in hemoglobin R71.0 Lymphedema of arm I89.0 Weakness R53.1 Dehydration E86.0
[2022-05-02] MEDS: ENOXAPARIN INJ 40 MG/0.4 ML SYR SQ SCH (20:19)
[2022-05-02] MEDS: TERAZOSIN HCL 1 MG CAP PO SCH (21:59)
[2022-05-02 23:00] LABS: Ferritin 929.8 ng/ml (8-388)
[2022-05-02 23:40] LABS: Folate (Folic Acid) 20.27 ng/ml (>5.38)
[2022-05-03 07:07] LABS: Hematocrit (blood only) 29.9 % (40.1-51.0); Mean Corpuscular Hemoglobin 31.6 pg (25.0-34.0); Mean Corpuscular Hgb Conc 33.4 g/dL (32.0-36.0); Mean Corpuscular Volume 94.6 fL (80.0-100.0); Mean Platelet Volume 11.2 fL (9.4-12.4); Platelet Count 109 K/uL (130-400); RDW Coefficient of Variation 15.3 % (11.5-14.5); RDW Standard Deviation 52.9 fL (36.4-46.3); Red Blood Count 3.16 M/uL (4.63-6.08); White Blood Count 7.13 K/ul (4.8-10.8)
[2022-05-03 07:30] LABS: Albumin Globulin Ratio 0.9 (0.9-2); Albumin Level 2.4 gm/dl (3.4-5.0); BUN Creatinine Ratio 23.2 (10-20); Bilirubin,Total 1.2 mg/dl (0.2-1.0); Calcium 7.7 mg/dl (8.5-10.1); Creatinine Clr Calc Pharmacy 92.1 ml/min; Est GFR (African American) 98.9 ml/min; Est GFR (Non-African American) 85.4 ml/min; Globulin 2.6 gm/dl (2.5-4.0)
[2022-05-03 07:37] LABS: INR 1.2 (0.9-1.1); Prothrombin Time 12.4 Seconds (9.0-12.0)
[2022-05-03] MEDS: MULTIVITAMIN TAB PO SCH (08:37)
[2022-05-03] MEDS: ATORVASTATIN 40 MG TAB PO SCH (08:37)
--- NOTE | 2022-05-03 10:24 | Surgery Progress Note ---
Date of Service May 03, 2022 Assessment & Plan (1) Elevated LFTs: Plan: Patient here with abnormal LFTs, question of acalculous cholecystitis on RUQ US WBC 7. Afebfrile. Today LFTs show Tb: 1.2 (1.3), AST: 37, ALT: 96, AlkP: 118 Abdomen soft, non tender. No belly complaints Awaiting HIDA scan for further evaluation Admission and Anticipated Discharge Date Admission Date: May 02, 2022 Supervising Physician Co-Signing Physician Notes Patient seen and examined, labs image reviewed, agree with above. 86-year-old male admitted with weight loss and lethargy. On exam he is afebrile stable vitals, abdomen soft, nontender, nondistended. WBC normal. Ultrasound performed yesterday showed no cholelithiasis, but distended gallbladder. He is currently nontender with a normal white count, doubt a calculus cholecystitis. HIDA scan pending. Subjective Patient states he is feeling well. Offers no complaints. No belly pain, n/v. Physical Exam Physical Exam: awake, no distress Gastrointestinal (Abdomen): Percussion/Palpation: abdomen soft; abdomen nontender obese abdomen Results & Data ([facility]) Vital Signs (Past 12 Hours) Vital Signs Temp Pulse Resp BP Pulse Ox O2 Del Method 05/03/22 08:24 Room Air 05/03/22 07:52 37.1 C 80 19 127/70 95 Room Air PG Care Time/CCT Total # of Minutes Spent Total Time Spent with Patient: Total time spent is greater than 50% in coordination of care (as documented) at patient's floor/unit and/or counseling patient: Coding Level of Care Code 20213 Subseq Hosp Care Lvl 1 Diagnoses Elevated LFTs R79.89
--- NOTE | 2022-05-03 13:17 | Hospitalist Progress Note ---
Date of Service May 03, 2022 Assessment & Plan (1) Generalized weakness: Plan: Suspect secondary to his prior COVID infection. No acute pathology identified and patient not getting worse, just not better. UA not taken however and will get this now. TSH normal Mild anemia unlikely contributory CK normal Lyme pending PT/OT - possible need for placement (2) Elevated LFTs: Plan: -HIDA scan planned for tomorrow although not having any pain consistent with acute cholecystitis -LFTs improving. Even if HIDA positive would not consider cholecystectomy essential (3) Drop in hemoglobin: Plan: -Hgb noted to be 11.0 today, down from 15 as of January of this year ?ferritin elevated from prior COVID Transferrin saturations 24% - does not appear to be iron def. 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 Main concern is his left arm swelling however he has been moving it less as generally weak. End of February - thought he had COVID, headache, nasal congestion chills, body aches. Patient never tested positive in that time. Improved but not back to his usual self. Usually better in the morning. No drive, decreased appetite. Sleep ok - 9pm sleep till 5-6am, gets up a couple of times a night for urination (no recent change). Generally weak - not one sided except for swelling in left arm. Legs feel like jello and just give way. Chronic back pain, nothing acute. No pain in joints of muscles of lower legs. Reports lack of taste initially with COVID although this appears to be coming back. His family felt just something was off therefore went to see PCP who sent him ot the ER for further evaluation. Reports getting his appetite back today even with clear liquids as he was kept NPO overnight. 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 Swelling much more than usual but ongoing since operation in 2015. Review of Systems Review of Systems: All systems reviewed & are unremarkable except as noted in Subjective Physical Exam Constitutional: WD/WN, vitals as above Eyes: + anicteric sclerae; normal pupil size ENMT: external ear and nose normal, oropharynx normal Neck: trachea midline, no thyromegaly Respiratory: normal respiratory effort, lungs clear to auscultation Cardiovascular: Rate/Rhythm: regular rate and regular rhythm Heart Sounds: + murmur (systolic) Vessels: no JVD Extremities: normal capillary refill and + edema (3+ left arm, 1+ bilateral LE) Gastrointestinal (Abdomen): normal bowel sounds, soft, nontender, no hepatosplenomegaly Musculoskeletal: no cyanosis or clubbing, extremities motor strength 5/5 Skin: no rashes, warm and dry Neurologic: moves all extremities and awake; no focal motor deficits and not confused Psychiatric: A+Ox3, euthymic affect Results & Data Results & Data ([facility]) Vital Signs (Past 12 Hours) Vital Signs Temp Pulse Resp BP Pulse Ox O2 Del Method 05/03/22 08:24 Room Air 05/03/22 07:52 37.1 C 80 19 127/70 95 Room Air PG Care Time/CCT Total # of Minutes Spent Total Time Spent: 70 Total Time Spent with Patient: Total time spent is greater than 50% in coordination of care (as documented) at patient's floor/unit and/or counseling patient: Coding Level of Care Code 74673 Subseq Obs Care Lvl 3 Diagnoses Generalized weakness R53.1 Elevated LFTs R79.89 Drop in hemoglobin R71.0 Lymphedema of arm I89.0 Dehydration E86.0
[2022-05-03 14:43] LABS: Lyme Ab IgG w/WB Rflx Positive (Negative); Lyme Ab IgM w/WB Rflx Positive (Negative)
--- NOTE | 2022-05-03 17:42 | Electrocardiogram Report ---
Test Reason : Blood Pressure : / mmHG Vent. Rate : 068 BPM Atrial Rate : 068 BPM P-R Int : 368 ms QRS Dur : 146 ms QT Int : 424 ms P-R-T Axes : 023 -48 097 degrees QTc Int : 450 ms Sinus rhythm with 1st degree A-V block with frequent Premature ventricular complexes and Premature at rial complexes Left axis deviation Left bundle branch block Abnormal ECG When compared with ECG of 09-FEB-2015 11:06, Premature ventricular complexes are now Present Premature atrial complexes are now Present HI interval has increased Left bundle branch block is now Present Confirmed by Chiki Hilton ([id number]) on 05/03/2022 5:42:36 PM Referred By: Marlys Leon Confirmed By:Kehinde Hilton
[2022-05-03] MEDS: ENOXAPARIN INJ 40 MG/0.4 ML SYR SQ SCH (19:20)
[2022-05-03] MEDS: TERAZOSIN HCL 1 MG CAP PO SCH (19:20)
[2022-05-04] MEDS ORDERED: SINCALIDE 2.1 MCG in 0.9 % SODIUM CHLORIDE 100 ML IV ONE (08:30)
--- NOTE | 2022-05-04 10:04 | Nuclear Medicine Report ---
NM hepatobiliary EF CLINICAL HISTORY: 86 years-old Male with transaminitis, r/o cholecystitis. Acute right upper quadran t abdominal pain TECHNIQUE: Following the intravenous administration of 5.3 mCi of technetium-99m Choletec, sequentia l abdominal images were obtained. In order to evaluate the contractile response of the gallbladder, 2.1 mcg of Kinevac was administered by slow intravenous infusion over 30 min starting approximately 6 0 min after the administration of the radiopharmaceutical. Sequential imaging was continued for 45 m in after the start of the Kinevac infusion. COMPARISON: Abdominal ultrasound 05/02/2022 FINDINGS: There is prompt, uniform accumulation of the tracer by the liver. There is normal filling of the int rahepatic ducts, common bile duct and gallbladder and normal excretion of the tracer into the duodenu m. There is normal contraction of the gallbladder. The calculated gallbladder ejection fraction is 96% (normal >40%). There is no significant enterogastric reflux. IMPRESSION: 1. Normal contractile response of the gallbladder to Kinevac infusion. 2. Normal biliary imaging study. ACT 112: Negative or not required by law. The above report was generated using voice recognition software. It may contain grammatical, syntax o r spelling errors. Electronically signed by: Garrison Russo M.D. 05/04/2022 10:03 AM
[2022-05-04] MEDS: ATORVASTATIN 40 MG TAB PO SCH (10:15)
[2022-05-04] MEDS: MULTIVITAMIN TAB PO SCH (10:16)
--- NOTE | 2022-05-04 11:01 | Surgery Progress Note ---
Date of Service May 04, 2022 Assessment & Plan (1) Elevated LFTs: Plan: HIDA negative for acute tyrese Patient is asymptomatic from an abdominal standpoint. No tenderness on exam Advance diet as tolerates Results of Lyme are returning We will sign off, please call with any questions/concerns Admission and Anticipated Discharge Date Admission Date: May 02, 2022 Subjective Patient denies abdominal pain, nausea/vomiting. No complaints. Physical Exam Physical Exam: awake/alert, no distress Gastrointestinal (Abdomen): Percussion/Palpation: abdomen soft; abdomen nontender obese abdomen Results & Data ([facility]) Vital Signs (Past 12 Hours) Vital Signs Temp Pulse Resp BP Pulse Ox O2 Del Method 05/04/22 10:34 Room Air 05/04/22 07:12 36.4 C L 77 18 135/73 91 Room Air PG Care Time/CCT Total # of Minutes Spent Total Time Spent with Patient: Total time spent is greater than 50% in coordination of care (as documented) at patient's floor/unit and/or counseling patient: Coding Level of Care Code 66437 Subseq Hosp Care Lvl 1 Diagnoses Elevated LFTs R79.89
--- NOTE | 2022-05-04 16:24 | Discharge Summary ---
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 Per the patient and family at beside, the patient had an upper respiratory infection approximately 3 weeks ago. They did multiple at home covid tests which were negative. Per his family, since the viral illness the patient has had decreased appetite and oral intake, approximately 12 pounds of weight loss, and increased LUE swelling. He normally wears a compression sleeve on the left arm but was unable to put it on since late last week. They deny recent fevers, chills, headache, changes in vision, hearing, taste, and smell, chest pain, SOB, abdominal pain, nausea, vomiting, diarrhea, constipation, dysuria, hematuria, and recent falls. When asked, the patient states that he has no abdominal pain whatsoever and has not had issues with pain or discomfort with eating. He simply has less of an appetite and has mainly been drinking boost shakes over the past 3 weeks. He was seen today at his PCP's office and they recommended him coming to the ER for a broader evaluation and workup. In the ED the patient was found to be afebrile, hemodynamically stable, and stable on room air. As part of the initial workup he was found to have a total bili of 1.3, AST of 47, ALT of 57, and alk phos of 143. Because of this, a RUQ US was ordered and showed Hepatic steatosis, No shadowing gallstones, negative sonographic Valentin's sign, and equivocal findings of possible acalculous cholecystitis. General surgery was consulted and evaluated the patien t, no surgical intervention was recommended and they recommended HIDA scan for further workup. Principal Diagnosis Generalized weakness Discharge Exam Constitutional: WD/WN, vitals as above Eyes: + anicteric sclerae; normal pupil size ENMT: external ear and nose normal, oropharynx normal Neck: trachea midline, no thyromegaly Respiratory: normal respiratory effort, lungs clear to auscultation Cardiovascular: Rate/Rhythm: regular rate and regular rhythm Heart Sounds: + murmur (systolic) Vessels: no JVD Extremities: normal capillary refill and + edema (3+ left arm, 1+ bilateral LE) Gastrointestinal (Abdomen): normal bowel sounds, soft, nontender, no hepatosplenomegaly Musculoskeletal: no cyanosis or clubbing, extremities motor strength 5/5 Skin: no rashes, warm and dry Neurologic: moves all extremities and awake; no focal motor deficits and not confused Psychiatric: A+Ox3, euthymic affect Discharge Data Allergies Allergy/AdvReac Type Severity Reaction Status Date / Time No Known Allergies Allergy Verified 05/02/22 17:47 Consultations 05/02/22 17:23 ED Decision to Admit Stat 05/02/22 18:03 Consult General Surgery Stat Ordered Studies 05/02/22 12:16 US venous doppler UE LT Stat 05/02/22 14:10 US gallbladder Stat Hospital Course (1) Generalized weakness: Suspect secondary to his prior COVID infection. No acute pathology identified and patient not getting worse, just not better. UA not taken however and will get this now. TSH normal Mild anemia unlikely contributory CK normal Lyme pending: awaiting western blot. Patient and family agreeable to discharge. (2) Elevated LFTs: -HIDA scan planned for tomorrow although not having any pain consistent with acute cholecystitis -LFTs improving. HIDA negative. no need for surgery. Will have patient repeat lab work in 1 week. (3) Drop in hemoglobin: -Hgb noted to be 11.0 today, down from 15 as of January of this year ?ferritin elevated from prior COVID Transferrin saturations 24% - does not appear to be iron def. B12 and folate normal (4) Lymphedema of arm: -Patient has had chronic lymphedema in the LUE since his sarcoma removal -He and family state that his chronic swelling has been worse recently -LUE doppler negative for DVT, likely just worsening of his chronic edema, no signs of cellulitis on exam -Suspect patient moving this arm less (5) Dehydration: -See weakness Plan VTE Prophylaxis - Lovenox 40mg SQ daily Total Time Total Time Spent Total Time Spent (In Minutes): 35 Discharge Plan Discharge Items Patient Disposition: Home - Self-Care Reason For Visit: WEAKNESS, DEHYDRATION Discharge Diagnosis: dehydration/ elevated liver function test Activity: Resume your previous activity Non-emergency contact: Primary Care Provider Call non-emergency contact if: you have any medication questions Follow-up/Referrals: Emilia Herrera MD [Primary Care Provider] - 05/08/22 8:00 am Diet: Heart Healthy Addtl Attending Provider Instructions: You have been hospitalized for an acute medical problem. During your stay at [facility], we have made an effort to correct the problem that brought you to the hospital while keeping you as comfortable as possible. Medications were used to bring your condition under control and your discharge instructions will include directions for any medications you should take after leaving the hospital. Please make sure you see your Primary Care Provider as part of your follow up plan. Recommend followup with PCP in 1-2 weeks. Recommend rechecking your blood work next week. Pending Studies at Discharge: No Stand-Alone Forms: [facility], Smoking Cessation Medications and DC Order Prescriptions: Continued metoprolol succinate 25 mg tablet extended release 24 hr 25 mg PO DAILY Qty: 90 3RF lisinopril 2.5 mg tablet 2.5 mg PO DAILY Qty: 90 3RF amoxicillin 500 mg capsule 2,000 mg PO ONCE PRN (Reason: DENTAL APPOINTMENT) Qty: 4 multivitamin [Daily Multi-Vitamin] tablet 1 tab PO DAILY terazosin 2 mg capsule 4 mg PO HS Qty: 360 Rx Instructions: THIS DOSE WAS STATED BY PATIENT. lactobacillus combination no.8 See Rx Instructions PO DAILY Label Comments: 1 tablet PO DAILY; Rx Instructions: 1 tablet PO DAILY; atorvastatin 20 mg tablet 40 mg PO DAILY Discharge Orders: Discharge Order (Routine); Ordered 05/04/22 Ordered By: Nir Babin/Other Patient Handouts: ED Weakness (Uncertain Cause) Admission Data Admit Date/Time: 05/02/22 18:33 Attending Provider: Nir Stuart Admit Provider: Wilberto Vo Primary Care Provider: Emilia Herrera Other Providers: Wilberto Vo ; Jarod Quiñones Other Interventions: Discharge Summary Assessment (RN) Last Done: 05/04/22 16:36 Coding Level of Care Code D/C DAY MANAGEMENT >30 MINS Diagnoses Generalized weakness R53.1 Elevated LFTs R79.89 Drop in hemoglobin R71.0 Lymphedema of arm I89.0 Dehydration E86.0
[2022-05-06 02:17] LABS: 18KDIGG Band NON-REACTIVE; 23KDIGG Band NON-REACTIVE; 23KDIGM Band REACTIVE; 28KDIGG Band NON-REACTIVE; 30KDIGG Band NON-REACTIVE; 39KDIGG Band NON-REACTIVE; 39KDIGM Band REACTIVE; 41KDIGG Band REACTIVE; 41KDIGM Band NON-REACTIVE; 45KDIGG Band REACTIVE; 58KDIGG Band NON-REACTIVE; 66KDIGG Band NON-REACTIVE; 93KDIGG Band NON-REACTIVE; Lyme Antibodies, WB IgG NEGATIVE (NEGATIVE); Lyme Antibodies, WB IgM POSITIVE (NEGATIVE)
== END 2022-05-04 17:17 | disposition home or self-care (01) ==
LOC: 3N 10:37 → ED 10:37 → SUATTDRO 18:33 → 3N 21:08